=== PATIENT | male | born 1985 | race African-American/Black ===

== ENCOUNTER 2016-12-29 22:00 | Inpatient (IN) | payer MEDICAID ==
[~2016-12-29] VITALS: Ht 172.7 cm; Wt 77.6 kg
[2016-12-29] MEDS ORDERED: ZOLPIDEM TARTRATE 10 MG TABLET PO PRN (23:00)
[2016-12-29 23:13] VITALS: BP 115/67
[2016-12-30 06:07] VITALS: BP 113/67
[2016-12-30 06:36] LABS: BASOPHILS # (AUTO) 0.04 K/uL (0.00-0.20); BASOPHILS % (AUTO) 1.1 % (0.0-2.0); EOSINOPHILS # (AUTO) 0.31 K/uL (0.00-0.70); HEMOGLOBIN 15.6 g/dL (13.5-17.5); LYMPHOCYTES # (AUTO) 2.1 K/uL (1.0-4.8); LYMPHOCYTES % (AUTO) 53.8 % (22.0-44.0); MEAN CORPUSCULAR HEMOGLOBIN 31.2 pg (26.0-34.0); MEAN CORPUSCULAR HGB CONC 32.6 G/dL (31.0-37.0); MEAN CORPUSCULAR VOLUME 96 fL (80-100); MONOCYTES # (AUTO) 0.4 K/uL (0.1-1.0); MONOCYTES % (AUTO) 10.7 % (2.0-9.0); NEUTROPHILS # (AUTO) 1.1 K/uL (1.8-7.7); NEUTROPHILS % (AUTO) 26.6 % (40.0-70.0); PLATELET COUNT (AUTO) 284 K/uL (150-450); RED BLOOD CELL COUNT(AUTO) 5.02 MIL/uL (4.50-5.90); RED CELL DISTRIBUTION WIDTH 13.2 % (11.5-14.5)
[2016-12-30 07:00] LABS: ALANINE AMINOTRANSFERASE 32 U/L (12-78); ALBUMIN 3.9 g/dL (3.4-5.0); ANION GAP 9 mmol/L (8-16); ASPARTATE AMINOTRANSFERASE 20 U/L (15-37); BILIRUBIN,TOTAL 0.4 mg/dL (0.1-1.0); CARBON DIOXIDE 28 mmol/L (22-29); CHLORIDE 104 mmol/L (98-107); CHOL/HDL RATIO 3.8 (4.2-7.3); CREATININE 1.05 mg/dL (0.60-1.30); GLOMERULAR FILTR. RATE CALC > 60 mL/min (>60); POTASSIUM 4.6 mmol/L (3.5-5.1); SODIUM SERUM 141 mmol/L (136-145); TOTAL PROTEIN, SERUM 7.6 g/dL (6.4-8.2); UREA NITROGEN, BLOOD 13 mg/dL (7-18)
[2016-12-30 09:25] VITALS: BP 110/62
[2016-12-30] MEDS ORDERED: ACETAMINOPHEN 325 MG TABLET PO PRN (13:30)
[2016-12-30] MEDS ORDERED: IBUPROFEN 400 MG TABLET PO PRN (13:30)
[2016-12-30] MEDS ORDERED: FluPHENAZine HCL 5 MG TABLET PO PRN (16:15)
[2016-12-30 17:04] VITALS: BP 118/70
[2016-12-30] MEDS: OLANZapine 7.5 MG TABLET PO SCH (20:13)
[2016-12-31 06:45] LABS: CHOL/HDL RATIO 3.9 (4.2-7.3); THYROID STIMULATING HORMONE 0.82 uIU/mL (0.36-3.74)
[2016-12-31 08:00] VITALS: BP 128/59
[2016-12-31] MEDS: LORazepam 2 MG TABLET PO PRN (14:17)
[2016-12-31 16:25] VITALS: BP 103/61
[2016-12-31] MEDS: OLANZapine 7.5 MG TABLET PO SCH (20:18)
[2017-01-01 01:41] VITALS: BP 131/62
[2017-01-01 10:29] VITALS: BP 121/64
[2017-01-01 16:14] VITALS: BP 116/68
[2017-01-01] MEDS: LORazepam 2 MG TABLET PO PRN (16:51)
[2017-01-01] MEDS: OLANZapine 7.5 MG TABLET PO SCH (20:33)
[2017-01-02 09:55] VITALS: BP 113/60
[2017-01-02] MEDS: LORazepam 2 MG TABLET PO PRN (16:44)
[2017-01-02 17:38] VITALS: BP 108/62
[2017-01-02] MEDS: OLANZapine 7.5 MG TABLET PO SCH (20:54)
[2017-01-03] MEDS ORDERED: OLAN7.5T2 PO (10:36)
[2017-01-03 11:19] VITALS: BP 128/78
== END 2017-01-03 15:13 | disposition home or self-care (01) | DRG 750 ==
LOC: 3EI 22:00
PROVIDERS: ADMIT Psychiatry & Neurology Psychiatry; ATTEND Psychiatry & Neurology Psychiatry
DX: F25.9 Schizoaffective disorder, unspecified (principal); E78.5 Hyperlipidemia, unspecified; D72.819 Decreased white blood cell count, unspecified; F19.10 Other psychoactive substance abuse, uncomplicated; F10.10 Alcohol abuse, uncomplicated; Z71.41 Alcohol abuse counseling and surveillance of alcoholic; Z79.899 Other long term (current) drug therapy; Z88.5 Allergy status to narcotic agent; Z71.89 Other specified counseling
CPT/HCPCS: 83036; 84443